=== PATIENT | female | born 1955 | race Hispanic/Latino ===

== ENCOUNTER → 2023-06-16 | Outpatient (CLI) | payer OTHER ==
[~2023-06-16] MED LIST: no medications
== END | disposition home or self-care (01) ==
LOC: OIH 11:16
PROVIDERS: ATTEND Family Medicine
DX: Z13.6 Encounter for screening for cardiovascular disorders (principal)
CPT/HCPCS: 75571

== ENCOUNTER 2023-09-08 05:52 | Observation (INO) | payer OTHER ==
[2023-09-04 13:35] VITALS: BP 165/74; PULSE 74; RESP 18
[2023-09-04 13:50] LABS: APPEARANCE,URINE CLEAR (CLEAR); BILIRUBIN,URINE NEGATIVE (NEGATIVE); COLOR,URINE LIGHT-YELLOW (YELLOW); GLUCOSE, URINE (UA) NEGATIVE (NEGATIVE); KETONES,URINE NEGATIVE (NEGATIVE); LEUKOCYTE ESTERASE ,URINE 25 Leu/uL (NEGATIVE); NITRATE,URINE 2+ (NEGATIVE); OCCULT BLOOD,URINE NEGATIVE (NEGATIVE); PROTEIN,URINE NEGATIVE (NEGATIVE); UROBILINOGEN,URINE 0.2 mg/dL (0.2-1.0)
[2023-09-04 13:52] LABS: ADD UA MICROSCOPIC YES
[2023-09-04 14:19] LABS: BACTERIA,URINE FEW /HPF (None Seen); RBC,URINE 0-1 /HPF (0-1); SQUAMOUS EPITHELIAL CELL,UR RARE /HPF (0-2)
[2023-09-08] VITALS (29 sets, daily range): BP systolic 120–171; BP diastolic 54–84; PULSE 61–88; RESP 15–19; O2SAT 96–99
[~2023-09-08] VITALS: Ht 172.7 cm; Wt 97.9 kg
[~2023-09-08 05:52] MED LIST changes: +CALC-1209 PO; +CICLOPIROX TP; +FLUT16H NASAL; +LISI10TA24 PO; +PREG200C29 PO; +SERT-440 PO; +SOLI10TA7 PO; +TRAZ-185 PO; +TRIAMCINOLONE TP; +VITA-395 PO; -no medications
[2023-09-08 06:33] LABS: BASOPHILS # (AUTO) 0.06 K/uL (0.00-0.20); BASOPHILS % (AUTO) 0.9 % (0.0-5.0); EOSINOPHILS # (AUTO) 0.19 K/uL (0.00-0.70); HEMATOCRIT 40.3 % (36-48); IMMATURE GRANULOCYTE ABSOLUTE 0.02 K/uL (0-1); LYMPHOCYTES # (AUTO) 2.8 K/uL (1.0-4.8); MEAN CORPUSCULAR HEMOGLOBIN 27.6 pg (27.0-33.0); MEAN CORPUSCULAR HGB CONC 32.8 g/dL (32.0-36.0); MEAN CORPUSCULAR VOLUME 84.3 fL (79-99); MONOCYTES # (AUTO) 0.5 K/uL (0.1-1.0); MONOCYTES % (AUTO) 7.7 % (3.0-13.0); NEUTROPHILS # (AUTO) 2.8 K/uL (1.8-7.7); NEUTROPHILS % (AUTO) 44.1 % (40.0-77.0); PLATELET COUNT (AUTO) 282 K/uL (130-400); RED BLOOD CELL COUNT(AUTO) 4.78 MIL/uL (4.00-5.50); RED CELL DISTRIBUTION WIDTH 14.5 % (11.0-15.5); WHITE BLOOD COUNT (AUTO) 6.4 K/uL (4.8-10.8)
[2023-09-08] MEDS ORDERED: ROPIVACAINE 0.5% 5MG/ML 30ML ONE ×2 (06:42→07:12)
[2023-09-08] MEDS ORDERED: DEXAMETHASONE SOD PHOSPHATE 10MG/ML 1ML VIAL ONE ×3 (06:43→07:22)
[2023-09-08] MEDS ORDERED: LIDOCAINE PF 100MG/5ML (2%) SYRINGE 5ML ONE (06:43)
[2023-09-08] MEDS ORDERED: SUCCINYLCHOLINE CHLORIDE 20 MG/ML 10 ML VIAL ONE (06:43)
[2023-09-08] MEDS ORDERED: PROPOFOL 10 MG/ML 20ML VIAL IV ONE (06:44)
[2023-09-08] MEDS ORDERED: NEOSTIGMINE METHYLSULFATE 1MG/ML IV ONE (06:44)
[2023-09-08] MEDS ORDERED: GLYCOPYRROLATE 0.2 MG/ML 5 ML VIAL ONE (06:44)
[2023-09-08] MEDS ORDERED: FENTANYL CITRATE PF 50 MCG/1 ML 2ML VIAL ONE ×2 (06:44→07:35)
[2023-09-08] MEDS ORDERED: MIDAZOLAM HCL 1 MG/ML 2ML VIAL ONE (06:44)
[2023-09-08] MEDS ORDERED: ONDANSETRON 4MG INJ ONE (06:44)
[2023-09-08] MEDS ORDERED: ROCURONIUM BROMIDE 10MG/1ML 5ML VL ONE (06:45)
[2023-09-08] MEDS: CEFAZOLIN SODIUM 2 GM VIAL ONE ×2 (06:54→23:45)
[2023-09-08] MEDS: LACTATED RINGERS 1000ML 1,000 ML IV ONE (06:55)
[2023-09-08] MEDS: KETOROLAC 30MG VIAL (30MG/ML) IJ ONE (07:09)
[2023-09-08] MEDS ORDERED: KETOROLAC 30MG VIAL (30MG/ML) ONE ×2 (07:12→08:42)
[2023-09-08] MEDS ORDERED: TRANEXAMIC ACID 1000MG/10ML ONE (07:12)
[2023-09-08] MEDS ORDERED: PHENYLEPHRINE HCL 10 MG/ML 1ML VIAL IV ONE (08:41)
[2023-09-08] MEDS ORDERED: KETOROLAC 15MG/ML VIAL (15MG/ML) IV PRN (09:00)
[2023-09-08] MEDS ORDERED: ONDANSETRON 4MG INJ IVP PRN (09:00)
[2023-09-08] MEDS ORDERED: POTASSIUM CHLORIDE 20MEQ/100ML 100 ML IV PRN (09:00)
[2023-09-08] MEDS: POLYETHYLENE GLYCOL 3350 17 GM POWD.PACK PO SCH (09:00)
[2023-09-08] MEDS ORDERED: FERROUS FUMARATE 324 MG TABLET PO PRN (09:00)
[2023-09-08] MEDS ORDERED: CALCIUM CARB 500MG PO PRN (09:00)
[2023-09-08] MEDS ORDERED: POTASSIUM CHLORIDE 10% ELIXIR 20 MEQ/15 ML UDCUP PO PRN (09:00)
[2023-09-08] MEDS ORDERED: KCL 20 MEQ ERTAB PO PRN (09:00)
[2023-09-08] MEDS: DOCUSATE SODIUM 100 MG CAP PO SCH (09:00)
[2023-09-08] MEDS: 0.9%NACL 1000ML 1,000 ML IV SCH (11:16)
[2023-09-08] MEDS ORDERED: PREGABALIN 200 MG PO PRN (15:00)
[2023-09-08] MEDS ORDERED: APPL TP SCH ×2 (15:30)
[2023-09-08] MEDS: KETOROLAC 15MG/ML VIAL (15MG/ML) IV SCH (17:00)
[2023-09-08] MEDS: CEFAZOLIN SODIUM 2 GM VIAL IVPB SCH ×2 (17:00→23:44)
[2023-09-08] MEDS: TRAZODONE HCL 50 MG TAB PO SCH (20:51)
[2023-09-09] VITALS: BP 133/63; PULSE 72; RESP 18
[2023-09-09 03:50] LABS: HEMATOCRIT 33.7 % (36-48); MEAN CORPUSCULAR HEMOGLOBIN 28.1 pg (27.0-33.0); MEAN CORPUSCULAR HGB CONC 32.6 g/dL (32.0-36.0); MEAN CORPUSCULAR VOLUME 86.2 fL (79-99); RED BLOOD CELL COUNT(AUTO) 3.91 MIL/uL (4.00-5.50); RED CELL DISTRIBUTION WIDTH 14.2 % (11.0-15.5); WHITE BLOOD COUNT (AUTO) 10.2 K/uL (4.8-10.8)
[2023-09-09 04:00] VITALS: BP 131/51; PULSE 74; RESP 19
[2023-09-09 04:23] LABS: CREATININE 0.7 mg/dL (0.5-1.0); POTASSIUM 4.1 mmol/L (3.5-5.1)
[2023-09-09] MEDS: CYCLOBENZAPRINE HCL 10 MG TABLET PO PRN (06:03)
[2023-09-09 07:53] VITALS: BP 124/67; PULSE 73; RESP 18
[2023-09-09] MEDS: ASPIRIN 325MG EC TAB PO SCH (08:49)
[2023-09-09] MEDS: SERTRALINE HCL 50 MG TABLET PO SCH (08:49)
[2023-09-09] MEDS: VITAMIN E 400 UNIT CAPSULE PO SCH (08:50)
[2023-09-09] MEDS: Solifenacin Succinate 10 MG PO SCH (08:51)
[2023-09-09] MEDS: CALCIUM CARBONATE PO SCH (08:51)
[2023-09-09] MEDS: VITAMIN D3 PO SCH (08:51)
[2023-09-09] MEDS: [UNRECOGNIZED DRUG - OTHER] PO SCH (08:51)
[2023-09-09] MEDS: LISINOPRIL 10 MG TABLET PO SCH (08:53)
[2023-09-09] MEDS: FLUTICASONE PROPIONATE 50MCG/SPRAY 16 GM BOTTLE NS SCH (09:24)
[2023-09-09] MEDS: HYDROCODONE/ACETAMINOPHEN 5/325 MG TAB PO PRN (11:47)
[2023-09-09 12:00] VITALS: BP 161/70; PULSE 76; RESP 18; O2SAT 97
[2023-09-09 16:00] VITALS: BP 125/55; PULSE 71; RESP 17
[2023-09-09 20:00] VITALS: BP 137/68; PULSE 84; RESP 18; O2SAT 97
[2023-09-09] MEDS: TRAMADOL HCL 50 MG TABLET PO PRN (20:21)
[2023-09-10] VITALS: BP 127/50; PULSE 76; RESP 18
[2023-09-10 04:00] VITALS: BP 130/54; PULSE 76; RESP 18
[2023-09-10 07:45] VITALS: O2SAT 97
[2023-09-10 09:08] VITALS: BP 140/67; PULSE 86; RESP 17
[2023-09-10] MEDS: HYDROCODONE/ACETAMINOPHEN 5/325 MG TAB PO PRN (10:03)
[2023-09-10 11:46] VITALS: BP 115/53; PULSE 74; RESP 18
[2023-09-10] MEDS ORDERED: CYCL5TAB PO (12:45)
[2023-09-10] MEDS ORDERED: DOCU-116 PO (12:45)
[2023-09-10] MEDS ORDERED: HYDR-4060 PO (12:45)
[2023-09-10] MEDS ORDERED: ASPI-891 PO (12:45)
[2023-09-11] MEDS ORDERED: BISACODYL 10 MG SUPP.RECT RC PRN (09:00)
== END 2023-09-10 16:45 | disposition home or self-care (01) ==
LOC: DAH 05:52 → DAHIP 05:53 → 4DH 10:25
PROVIDERS: ADMIT Student in an Organized Health Care Education/Training Program; ATTEND Student in an Organized Health Care Education/Training Program
DX: M17.12 Unilateral primary osteoarthritis, left knee (principal); G89.18 Other acute postprocedural pain; R60.0 Localized edema; D62 Acute posthemorrhagic anemia; K21.9 Gastro-esophageal reflux disease without esophagitis; I10 Essential (primary) hypertension; Z79.899 Other long term (current) drug therapy
CPT/HCPCS: 87077; 87088; 87186; 84134; 86140; 81001; 36415 ×3; 93005; 87641; 27447; 96376; 96365; 96375; 64447; 85025; 73560; 97161; 97116 ×6; 97530 ×9; 80048; 85027; G0378 ×51; A4663; A4215 ×2; J7120; J3010 ×2; J3490 ×4; J1100 ×3; J0330; J2001; J2250; J2704; J2405; J1885 ×5; J2710; J2795 ×3; J2371; J0690 ×4; C1713 ×2; G0168; C1776 ×2; A4649 ×3; A4930 ×2; A6255; A5120; A4223; A4222; A4221